=== PATIENT | male | born 1935 | race Caucasian/White ===

== ENCOUNTER 2018-02-10 00:28 | Emergency (ER) | payer MEDICARE, OTHER ==
[2018-02-10] MEDS ORDERED: Ondansetron ODT 4 MG TAB ONE (00:58)
[2018-02-10] MEDS ORDERED: Mag-Al Plus 1200 MG/1200 MG/120 MG/30 ML UDCUP ONE (00:58)
[2018-02-10] MEDS ORDERED: Dicyclomine 10 MG CAP ONE (00:58)
[2018-02-10] MEDS ORDERED: Acetaminophen/Codeine 30-300mg Tablet ONE (01:44)
[2018-02-10] MEDS ORDERED: Pantoprazole 40 MG VIAL ONE (03:14)
[2018-02-10] MEDS ORDERED: Sodium Chloride 0.9% 1,000 ML ONE (03:14)
[2018-02-10] MEDS ORDERED: Morphine 4 MG/ML VIAL ONE ×2 (03:14→08:08)
[2018-02-10 03:20] LABS: #Basophils 0.1 thou/uL (0.0-0.2); #Lymphocytes 1.6 thou/uL (1.20-3.40); #Neutrophils 15.1 thou/uL (1.40-6.50); %Basophils 0.5 % (0.0-1.0); %Eosinophils 0.1 % (0.0-10.0); %Lymphocytes 8.9 % (21.0-51.0); %Monocytes 5.5 % (0.0-10.0); Hemoglobin 15.2 g/dL (14.0-18.0); Mean Corpuscular HGB CONC 34.4 g/dL (32.0-36.0); Mean Corpuscular Hemoglobin 29.6 pg (27.0-31.0); Mean Platelet Volume 7.8 fL (7.4-10.4); Platelet Count 370 thou/uL (130-400); RBC Distribution Width 10.8 % (11.5-14.5); Red Blood Cell (RBC) Count 5.14 mill/uL (4.70-6.10); White Blood Cell (WBC) Count 17.8 thou/uL (4.8-10.8)
[2018-02-10 03:35] LABS: ALT (SGPT) 17 U/L (8-55); AST (SGOT) 18 U/L (5-34); Albumin 4.6 g/dL (3.4-4.8); Alkaline Phosphatase 109 U/L (40-150); Anion Gap 19 mmol/L (10-20); BUN (Urea Nitrogen) 20 mg/dL (8.4-25.7); Bilirubin, Total 0.6 mg/dL (0.2-1.2); Calc. Creatinine Clearance 0 mL/min (70-130); Calcium 9.7 mg/dL (7.8-10.44); Carbon Dioxide 23 mmol/L (23-31); Chloride 94 mmol/L (98-107); Estimated GFR-MDRD 45; Globulin 4.3 g/dL (2.4-3.5); Glucose 253 mg/dL (83-110); Lipase 13 U/L (8-78); Potassium 3.8 mmol/L (3.5-5.1); Protein, Total 8.9 g/dL (5.8-8.1); Sodium 132 mmol/L (136-145)
[2018-02-10] MEDS ORDERED: Piperacillin/Tazobactam 4.5 GM VIAL ONE ×3 (05:42→11:24)
[2018-02-10] MEDS ORDERED: Sodium Chloride 0.9% 100 ML ONE ×2 (05:43→11:24)
[2018-02-10] MEDS ORDERED: Iopamidol 370 76% 100 ML VIAL ONE (06:40)
--- NOTE | 2018-02-10 09:25 | ULT ---
PRELIMINARY REPORT/[facility]/EMERGENTY AFTER-HOURS PROCEDURE US Abdomen Limited, Right Upper Quadrant EXAM DATE/TIME: 02/10/2018 5:50 AM CLINICAL HISTORY: 82 years old, male; Pain; Abdominal pain; Periumbilical; Patient HX: Periumbilical pain for last 2 da ys; Additional info: CT done earlier on this patient TECHNIQUE: Real-time ultrasound of the abdomen with image documentation. Examination was focused on the right up per quadrant. COMPARISON: CT Abdomen Pelvis W Con 02/10/2018 4:11 AM FINDINGS: Liver: Normal. No masses. Gallbladder: Gallbladder wall thickness measures 4 mm. A positive sonographic Aguilera sign is reported . Evaluation is somewhat limited however a gallstone may be present (series 1, image 25) Common bile duct: CBD measures 5 mm in diameter. Pancreas: The pancreas is poorly-visualized due to overlying bowel gas. Right kidney: Right kidney measures 10.5 x 6.2 x 4.6 IMPRESSION: Acute cholecystitis is suspected although evaluation is limited as above. Thank you for allowing us to participate in the care of your patient. Dictated and Authenticated by: Aiden Zelaya MD 02/10/2018 7:04 AM Central Time ([place] & [place]) FINAL REPORT RIGHT UPPER QUADRANT ULTRASOUND: Date: 02/10/18 FINDINGS/IMPRESSION: I agree with the preliminary report given by Piyush. POS: [facility]
--- NOTE | 2018-02-10 09:27 | CT ---
PRELIMINARY REPORT/[facility]/EMERGENTY AFTER-HOURS PROCEDURE CT Abdomen and Pelvis With Contrast EXAM DATE/TIME: 02/10/2018 4:11 AM CLINICAL HISTORY: 82 years old, male; Pain; Abdominal pain; Periumbilical; Patient HX: Periumbilical pain x 2 days TECHNIQUE: Axial computed tomography images of the abdomen and pelvis with intravenous contrast. All CT scans at this facility use at least one of these dose optimization techniques: automated exposure control; mA and/or kV adjustment per patient size (includes targeted exams where dose is matched to clinical ind ication); or iterative reconstruction. Coronal reformatted images were created and reviewed. CONTRAST: 100 ml of ISOVUE 370 administered intravenously. COMPARISON: No relevant prior studies available. FINDINGS: Lower thorax: There is subpleural atelectasis of the dependent portions of the lungs. A small hiatal hernia is present. ABDOMEN: Liver: There are no focal liver lesions identified. Gallbladder and bile ducts: There is questionable gallbladder wall haziness. There is no evidence of biliary ductal dilation. Pancreas: The pancreas appears normal. No ductal dilatation. Spleen: The spleen is normal. Adrenals: The adrenal glands are normal. Kidneys and ureters: The right kidney is normal. There is an indeterminate hypoattenuating lesion wit hin the left kidney which probably represents a benign cyst however is incompletely evaluated on curr ent exam. Nonemergent outpatient renal ultrasound performed for further characterization if clinically warranted. There is no evidence of hydronephrosis. Stomach and bowel: The stomach is normal. The duodenum is unremarkable. Mild diverticulosis is presen t in the sigmoid and descending colon. Appendix: No appendix is specifically identified. No associated signs to suggest acute appendicitis. PELVIS: Bladder: The bladder is normal. Reproductive: The prostate gland demonstrates moderate nonspecific enlargement. The seminal vesicles are normal. ABDOMEN and PELVIS: Intraperitoneal space: Normal. No free air. No significant fluid collection. Bones/joints: The lumbar spine demonstrates moderate degenerative changes at multiple levels. Soft tissues: Unremarkable. Vasculature: Normal. No abdominal aortic aneurysm. Lymph nodes: Normal. No enlarged lymph nodes. IMPRESSION: There is questionable gallbladder wall haziness. If acute cholecystitis is suspected, right upper kennedi drant ultrasound may be helpful for further evaluation. Thank you for allowing us to participate in the care of your patient. Dictated and Authenticated by: Aiden Zelaya MD 02/10/2018 5:26 AM Central Time ([place] & [place]) FINAL REPORT CT ABDOMEN AND PELVIS WITH IV CONTRAST: Date: 02/10/18 FINDINGS/IMPRESSION: I agree with the preliminary report given by Piyush. POS: [facility]
[2018-02-10 11:06] LABS: CKMB 3.2 ng/mL (0-6.6)
== END 2018-02-10 11:53 ==
LOC: MADERS 00:28
DX: R10.13 Epigastric pain (principal); I25.2 Old myocardial infarction; E11.9 Type 2 diabetes mellitus without complications
CPT/HCPCS: 36415; 74177; 76705; 80053; 82553; 83605; 83690; 84484; 85025; 93005; 96361; 96365; 96366; 96375; 96376; C9113; J2270; J2543; J7050; Q0162

== ENCOUNTER 2018-04-29 11:01 | Emergency (ER) | payer OTHER ==
[2018-04-29] MEDS ORDERED: cefTRIAXone\\ROCEPHIN 1 GM VIAL ONE (12:02)
[2018-04-29] MEDS ORDERED: Lidocaine 1% 20 ML MDV ONE (12:02)
== END 2018-04-29 12:20 | disposition home or self-care (01) ==
LOC: MADERS 11:01
DX: L03.113 Cellulitis of right upper limb (principal); E11.9 Type 2 diabetes mellitus without complications; Z79.899 Other long term (current) drug therapy
CPT/HCPCS: 96372; J0696; J2001

== ENCOUNTER 2018-05-04 20:28 | Emergency (ER) | payer OTHER ==
[~2018-05-04 20:28] MED LIST: Iopamidol 370 76% 100 ML VIAL ONE
[2018-05-04 20:56] LABS: #Basophils 0.1 thou/uL (0.0-0.2); #Eosinphils 0.1 thou/uL (0.0-0.7); #Lymphocytes 2.2 thou/uL (1.20-3.40); #Monocytes 0.9 thou/uL (0.11-0.59); #Neutrophils 8.3 thou/uL (1.40-6.50); %Basophils 1.1 % (0.0-1.0); %Eosinophils 0.6 % (0.0-10.0); %Lymphocytes 18.9 % (21.0-51.0); %Monocytes 7.6 % (0.0-10.0); %Neutrophils 71.7 % (42.0-75.0); Hemoglobin 11.9 g/dL (14.0-18.0); Mean Corpuscular Hemoglobin 26.6 pg (27.0-31.0); Mean Corpuscular Volume 80.6 fL (78.0-98.0); Mean Platelet Volume 7.1 fL (7.4-10.4); Platelet Count 498 thou/uL (130-400); RBC Distribution Width 13.1 % (11.5-14.5); Red Blood Cell (RBC) Count 4.49 mill/uL (4.70-6.10); White Blood Cell (WBC) Count 11.6 thou/uL (4.8-10.8)
[2018-05-04] MEDS ORDERED: Sodium Chloride 0.9% 1,000 ML ONE ×2 (20:59→22:01)
[2018-05-04 21:11] LABS: Bilirubin Small (Negative); Blood, Urine Negative (Negative); Clarity Clear (Clear); Glucose, Urine (Dipstick) Negative (Negative); Leukocyte Negative (Negative); Nitrite Negative (Negative); Protein, Urine (Dipstick) Negative (Neg-Trace); Specific Gravity, Urine 1.025 (1.005-1.030)
[2018-05-04 21:17] LABS: ALT (SGPT) 17 U/L (8-55); AST (SGOT) 20 U/L (5-34); Albumin 3.6 g/dL (3.4-4.8); Alkaline Phosphatase 155 U/L (40-150); Anion Gap 22 mmol/L (10-20); BUN (Urea Nitrogen) 16 mg/dL (8.4-25.7); Bilirubin, Total 0.4 mg/dL (0.2-1.2); CK (CPK) 52 U/L (30-200); Calc. Creatinine Clearance 0 mL/min (70-130); Calcium 8.8 mg/dL (7.8-10.44); Carbon Dioxide 15 mmol/L (23-31); Chloride 100 mmol/L (98-107); Estimated GFR-MDRD 55; Glucose 142 mg/dL (83-110); Potassium 4.9 mmol/L (3.5-5.1); Protein, Total 7.6 g/dL (5.8-8.1); Sodium 132 mmol/L (136-145)
[2018-05-04] MEDS ORDERED: Aspirin Chewable 81 MG TAB ONE (21:27)
[2018-05-04 21:33] LABS: CKMB 1.3 ng/mL (0-6.6)
[2018-05-04 21:52] LABS: Acetaminophen Less than 6.0 mcg/mL (10.0-30.0); Alcohol Less than 10 mg/dL (Less than 10); Salicylate Less than 8.0 mg/dL (15.0-30.0)
[2018-05-04] MEDS ORDERED: Piperacillin/Tazobactam 4.5 GM VIAL ONE (22:09)
[2018-05-04] MEDS ORDERED: Sodium Chloride 0.9% 250 ML 250 ML ONE (22:10)
[2018-05-04] MEDS ORDERED: Sodium Chloride 0.9% 100 ML ONE (22:10)
--- NOTE | 2018-05-04 22:42 | CT ---
BRAIN CT WITHOUT IV CONTRAST: History: Altered mental status. Comparison: 02-10-16 FINDINGS: Marked atrophy and chronic white matter ischemic changes. Old punctate lacunar infarcts in the estrella. Area of encephalomalacia in the right frontal lobe. No focal mass or midline shift. No intra or extra axial hemorrhage. Sinuses and mastoids are clear. IMPRESSION: Atrophy and chronic white matter ischemic changes with old infarct changes as above. Some of these ch anges are new from 2016. No mass or bleed or other significant acute process. POS: [facility]
--- NOTE | 2018-05-04 22:44 | RAD ---
EXAM: CHEST ONE VIEW: History: Nausea, vomiting. Comparison: 02-13-16 FINDINGS: Borderline cardiomegaly. No confluent pneumonia, overt edema, or pleural effusion. Arthrosis changes of both shoulders. IMPRESSION: Borderline cardiomegaly. No significant acute intrathoracic disease. Atherosclerosis of the aorta. St able from prior study. POS: [facility]
--- NOTE | 2018-05-04 23:29 | CT ---
EXAM: ABDOMEN AND PELVIC CT SCAN WITH IV CONTRAST: History: Abdominal pain. Comparison: 02-10-18 FINDINGS: Small left pleural effusion or pleural thickening. Mild increased markings in the lung bases. Fatty c hanges in the liver with status post cholecystectomy. Pancreas appears unremarkable. The spleen is so mewhat small and scarred with irregular low attenuation focus within it, somewhat triangular shaped a pproximating 3 cm on a side, probably a splenic infarct. Slightly scarred appearing kidneys. Left jae al cyst. No renal calculus or acute obstruction. Adrenal glands are unremarkable. No CT evidence f or acute appendicitis. There is scattered colonic diverticulosis without acute diverticulitis. Border line urinary bladder wall thickening, nonspecific but does appear to be slightly more prominent than on the prior 02-10-18 study. There are several loops of bowel which are within normal size but have f luid within them, nonspecific. This could represent some very mild nonspecific ileus or enteritis. No abscess or adenopathy or significant abnormal fluid collection. Bilateral fat containing inguinal he rnias. IMPRESSION: Somewhat small scarred spleen with a triangular low attenuation, evidence for splenic infarct. Status post cholecystectomy. Some fluid filled up to borderline sized small bowel loops, nonspecific, possi neida mild ileus or minimal enteritis. No renal calculus or obstruction. No CT evidence for acute ap pendicitis. Borderline urinary bladder wall thickening, nonspecific. POS: [facility]
[2018-05-05 01:55] LABS: CKMB 1.2 ng/mL (0-6.6)
[2018-05-05] MEDS ORDERED: Piperacillin/Tazobactam 4.5 GM VIAL ONE (02:21)
[2018-05-05] MEDS ORDERED: Sodium Chloride 0.9% 100 ML ONE (02:22)
== END 2018-05-05 02:30 | disposition short-term general hospital (02) ==
LOC: MADERS 20:28
DX: A41.9 Sepsis, unspecified organism (principal); D73.5 Infarction of spleen; R79.89 Other specified abnormal findings of blood chemistry; I25.2 Old myocardial infarction; E11.9 Type 2 diabetes mellitus without complications; Z79.899 Other long term (current) drug therapy
CPT/HCPCS: 36415; 51701; 70450; 71045; 74177; 80053; 80307; 81003; 82550; 82553; 83605; 83690; 84484; 85025; 87040; 87086; 93005; 96361; 96365; 96366; 96367; J2543; J3370; J7050; Q9967

== ENCOUNTER 2018-08-17 06:34 | Emergency (ER) | payer MEDICARE, OTHER ==
[2018-08-17 07:41] LABS: #Basophils 0.2 thou/uL (0.0-0.2); #Eosinphils 0.4 thou/uL (0.0-0.7); #Lymphocytes 1.1 thou/uL (1.20-3.40); #Monocytes 0.6 thou/uL (0.11-0.59); #Neutrophils 5.6 thou/uL (1.40-6.50); %Basophils 2.1 % (0.0-1.0); %Eosinophils 4.6 % (0.0-10.0); %Lymphocytes 14.1 % (21.0-51.0); %Monocytes 7.8 % (0.0-10.0); %Neutrophils 71.5 % (42.0-75.0); Hemoglobin 14.4 g/dL (14.0-18.0); Mean Corpuscular HGB CONC 31.3 g/dL (32.0-36.0); Mean Corpuscular Hemoglobin 27.6 pg (27.0-31.0); Mean Platelet Volume 7.3 fL (7.4-10.4); Platelet Count 287 thou/uL (130-400); Red Blood Cell (RBC) Count 5.21 mill/uL (4.70-6.10); White Blood Cell (WBC) Count 7.8 thou/uL (4.8-10.8)
[2018-08-17 07:55] LABS: ALT (SGPT) 20 U/L (8-55); AST (SGOT) 15 U/L (5-34); Albumin 3.5 g/dL (3.4-4.8); Alkaline Phosphatase 91 U/L (40-150); Anion Gap 15 mmol/L (10-20); BUN (Urea Nitrogen) 19 mg/dL (8.4-25.7); Bilirubin, Total 0.4 mg/dL (0.2-1.2); Calc. Creatinine Clearance 0 mL/min (70-130); Calcium 8.5 mg/dL (7.8-10.44); Carbon Dioxide 22 mmol/L (23-31); Chloride 106 mmol/L (98-107); Estimated GFR-MDRD 58; Globulin 3.2 g/dL (2.4-3.5); Glucose 243 mg/dL (83-110); Protein, Total 6.7 g/dL (5.8-8.1); Sodium 139 mmol/L (136-145)
[2018-08-17] MEDS ORDERED: Nitroglycerin 2% Ointment 1 INCH/1 GM Packet ONE (08:14)
[2018-08-17] MEDS ORDERED: Aspirin Chewable 81 MG TAB ONE (08:14)
[2018-08-17] MEDS ORDERED: Furosemide 40 MG/4 ML VIAL ONE (08:14)
[2018-08-17] MEDS ORDERED: Nitroglycerin 0.4 MG TAB 1 EACH ONE (08:14)
[2018-08-17 08:17] LABS: CKMB 1.9 ng/mL (0-6.6)
--- NOTE | 2018-08-17 09:02 | RAD ---
CHEST 1 VIEW: Date: 08/17/18 COMPARISON: 05/19/18. HISTORY: Dyspnea. FINDINGS: Heart size is enlarged. Pulmonary vessels are engorged with increased parahilar lung markings, sugges ting element of edema. There is also superimposition of chronic-appearing changes. IMPRESSION: Cardiomegaly with increased interstitial lung markings, at least some of which are chronic in nature; however, there is pulmonary vascular engorgement and increased parahilar lung markings, more promine nt than on the prior exam suggesting a coexistent element of edema. POS: [facility]
== END 2018-08-17 09:16 | disposition short-term general hospital (02) ==
LOC: MADERS 06:34
DX: I11.0 Hypertensive heart disease with heart failure (principal); I50.9 Heart failure, unspecified; R79.89 Other specified abnormal findings of blood chemistry; R09.02 Hypoxemia; I25.2 Old myocardial infarction
CPT/HCPCS: 71045; 80053; 82553; 83880; 84484; 85025; 93005; 96374; J1940

== ENCOUNTER 2019-03-17 10:00 | Emergency (ER) | payer MEDICARE, OTHER ==
[2019-03-17 10:26] LABS: #Basophils 0.1 thou/uL (0.0-0.2); #Eosinphils 0.1 thou/uL (0.0-0.7); #Lymphocytes 1.7 thou/uL (1.20-3.40); #Monocytes 1.1 thou/uL (0.11-0.59); #Neutrophils 7.5 thou/uL (1.40-6.50); %Basophils 1.1 % (0.0-1.0); %Eosinophils 1.3 % (0.0-10.0); %Lymphocytes 16.2 % (21.0-51.0); %Monocytes 10.3 % (0.0-10.0); %Neutrophils 71.1 % (42.0-75.0); Hemoglobin 13.1 g/dL (14.0-18.0); Mean Corpuscular HGB CONC 31.2 g/dL (32.0-36.0); Mean Corpuscular Volume 86.6 fL (78.0-98.0); Mean Platelet Volume 7.7 fL (7.4-10.4); Platelet Count 415 thou/uL (130-400); RBC Distribution Width 12.6 % (11.5-14.5); Red Blood Cell (RBC) Count 4.86 mill/uL (4.70-6.10); White Blood Cell (WBC) Count 10.6 thou/uL (4.8-10.8)
[2019-03-17 10:40] LABS: ALT (SGPT) 16 U/L (8-55); AST (SGOT) 16 U/L (5-34); Albumin 3.7 g/dL (3.4-4.8); Alkaline Phosphatase 148 U/L (40-110); Anion Gap 17 mmol/L (10-20); BUN (Urea Nitrogen) 19 mg/dL (8.4-25.7); Bilirubin, Total 1.2 mg/dL (0.2-1.2); CK (CPK) 63 U/L (30-200); Calc. Creatinine Clearance 0 mL/min (70-130); Calcium 9.6 mg/dL (7.8-10.44); Carbon Dioxide 25 mmol/L (23-31); Chloride 100 mmol/L (98-107); Estimated GFR-MDRD 57; Globulin 4.2 g/dL (2.4-3.5); Glucose 99 mg/dL (83-110); Magnesium 1.9 mg/dL (1.6-2.6); Potassium 3.7 mmol/L (3.5-5.1); Protein, Total 7.9 g/dL (5.8-8.1); Sodium 138 mmol/L (136-145)
--- NOTE | 2019-03-17 10:49 | CT ---
CT HEAD WITHOUT CONTRAST: Date: 03/17/2019 INDICATION: Mental status change. History of prior CVA. Comparison made to head CT dated 05/14/18. FINDINGS: Mild cortical volume loss again noted. Ventricles have normal size and position. Evidence of old righ t frontal lobe infarct with encephalomalacia again noted, stable from prior exam. Moderately severe c hronic ischemic white matter changes are again noted. No evidence of acute cortical infarct. No evide nce of mass or hemorrhage. Paranasal sinuses and mastoids are clear. IMPRESSION: Chronic findings appear stable from prior study. No acute intracranial process identified. Acute lacu merari infarcts within the deep white matter may not be apparent on CT and could be assessed with MRI if clinically indicated. POS: [facility]
--- NOTE | 2019-03-17 13:16 | RAD ---
EXAM: CHEST ONE VIEW HISTORY: Weakness COMPARISON: 01/20/2019 FINDINGS: Godfrey silhouette is magnified by projection and stable in size. Pulmonary vasculature is less prominen t than on the prior exam. Interstitial densities are also improved. There are linear parenchymal densities seen at each lung base which is likely related to atelectasis. No consolidation or pleural fluid is identified. 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 Vascular calcifications are seen in the thoracic aorta. IMPRESSION: 1. Findings likely attributable to bibasilar atelectasis. No definite acute cardiopulmonary process i s otherwise identified. 2. Improvement in pulmonary vascular congestion and interstitial densities noted on the prior exam.
[2019-03-17 13:57] LABS: Bilirubin Small (Negative); Blood, Urine Negative (Negative); Clarity Clear (Clear); Glucose, Urine (Dipstick) Negative (Negative); Leukocyte Negative (Negative); Nitrite Negative (Negative); Protein, Urine (Dipstick) Negative (Neg-Trace)
== END 2019-03-17 16:06 | disposition short-term general hospital (02) ==
LOC: MADERS 10:00
DX: R26.9 Unspecified abnormalities of gait and mobility (principal); R07.9 Chest pain, unspecified; E11.9 Type 2 diabetes mellitus without complications; E78.5 Hyperlipidemia, unspecified; I10 Essential (primary) hypertension; I25.2 Old myocardial infarction; D64.9 Anemia, unspecified; Z86.73 Personal history of transient ischemic attack (TIA), and cerebral infarction without residual deficits
CPT/HCPCS: 36415; 70450; 71045; 80053; 81003; 82550; 83735; 83880; 84443; 84484; 85025; 93005

== ENCOUNTER 2019-05-25 16:09 | Emergency (ER) | payer OTHER, MEDICARE ==
[2019-05-25 16:50] LABS: #Basophils 0.2 thou/uL (0.0-0.2); #Eosinphils 0.3 thou/uL (0.0-0.7); #Lymphocytes 2.4 thou/uL (1.20-3.40); #Monocytes 0.7 thou/uL (0.11-0.59); #Neutrophils 4.6 thou/uL (1.40-6.50); %Basophils 2.1 % (0.0-1.0); %Eosinophils 3.4 % (0.0-10.0); %Lymphocytes 29.4 % (21.0-51.0); %Monocytes 8.7 % (0.0-10.0); %Neutrophils 56.5 % (42.0-75.0); Hemoglobin 13.2 g/dL (14.0-18.0); Mean Corpuscular HGB CONC 32.6 g/dL (32.0-36.0); Mean Corpuscular Hemoglobin 28.9 pg (27.0-31.0); Mean Corpuscular Volume 88.7 fL (78.0-98.0); Mean Platelet Volume 8.4 fL (7.4-10.4); Platelet Count 320 thou/uL (130-400); RBC Distribution Width 13.3 % (11.5-14.5); Red Blood Cell (RBC) Count 4.55 mill/uL (4.70-6.10); White Blood Cell (WBC) Count 8.1 thou/uL (4.8-10.8)
--- NOTE | 2019-05-25 17:03 | CT ---
Exam: CT cervical spine without contrast HISTORY: Trauma. Pain. COMPARISON: None FINDINGS: No craniocervical dissociation. Appropriate alignment of the lateral masses of C1 and C2. Intact odon toid process Appropriate alignment of the facets. Straightening of normal cervical lordosis may be due to patient position, muscle spasm or cervical collar. Current study does not assess for ligamentous injury. Grade 1 anterolisthesis of C3 upon C4 is presumed to be due to degenerative changes of the facets. Soft tissue neck structures: No mass, lymphadenopathy or hematoma. No prevertebral soft tissue swelli ng. Atherosclerosis involving the visualized carotid arteries, incompletely evaluated Upper mediastinum and lung apices: Unremarkable Central spinal canal: There are varying degrees of central canal stenosis and neural foraminal narrow ing due to degenerative change. Technique limits evaluation. Vertebral bodies: Cervical spine vertebral body height is maintained. No fracture. IMPRESSION: 1. No cervical spine fracture. 2. Degenerative changes of the cervical spine as described above. 3. Atherosclerosis of the carotid arteries, incompletely evaluated. 4. Straightening of cervical lordosis as detailed above. If there is concern for ligamentous injury, consider MRI
[2019-05-25 17:04] LABS: ALT (SGPT) 15 U/L (8-55); AST (SGOT) 13 U/L (5-34); Albumin 4.1 g/dL (3.4-4.8); Alkaline Phosphatase 98 U/L (40-110); Anion Gap 17 mmol/L (10-20); BUN (Urea Nitrogen) 16 mg/dL (8.4-25.7); Bilirubin, Total 0.4 mg/dL (0.2-1.2); Calc. Creatinine Clearance 0 mL/min (70-130); Calcium 9.3 mg/dL (7.8-10.44); Carbon Dioxide 22 mmol/L (23-31); Chloride 101 mmol/L (98-107); Estimated GFR-MDRD 45; Globulin 3.2 g/dL (2.4-3.5); Glucose 513 mg/dL (83-110); Lipase 25 U/L (8-78); Potassium 4.5 mmol/L (3.5-5.1); Protein, Total 7.3 g/dL (5.8-8.1); Sodium 135 mmol/L (136-145)
[2019-05-25 17:19] LABS: Bilirubin Negative (Negative); Blood, Urine Negative (Negative); Clarity Clear (Clear); Glucose, Urine (Dipstick) >=1000 mg/dL (Negative); Leukocyte Negative (Negative); Nitrite Negative (Negative); Protein, Urine (Dipstick) Negative (Neg-Trace); Urobilinogen 0.2 mg/dL (Less than 2)
[2019-05-25] MEDS ORDERED: Insulin Regular 300 UNITS/3 ML VIAL ONE (17:59)
[2019-05-25] MEDS ORDERED: Sodium Chloride 0.9% 500 ML ONE (17:59)
[2019-05-25 18:00] LABS: CKMB 1.6 ng/mL (0-6.6)
== END 2019-05-25 20:45 ==
LOC: MADERS 16:09
DX: R53.1 Weakness (principal); I48.91 Unspecified atrial fibrillation; E11.65 Type 2 diabetes mellitus with hyperglycemia; I10 Essential (primary) hypertension; R79.9 Abnormal finding of blood chemistry, unspecified; E78.5 Hyperlipidemia, unspecified; D64.9 Anemia, unspecified; I25.2 Old myocardial infarction; Z86.73 Personal history of transient ischemic attack (TIA), and cerebral infarction without residual deficits
CPT/HCPCS: 36416; 72125; 80053; 81003; 82553; 83605; 83690; 83880; 84484; 85025; 93005; 94760; 96361; 96374; J1815; J7030; L0120

== ENCOUNTER 2019-08-01 11:36 | Emergency (ER) | payer OTHER ==
--- NOTE | 2019-08-01 12:27 | RAD ---
Exam: Chest one view HISTORY:Altered mental status Comparison: 03/09/2019 FINDINGS: Cardiac silhouette:Upper normal cardiac silhouette Aorta: Atherosclerosis Pulmonary vessels: Normal Costophrenic angles: Clear LUNGS: Diffuse interstitial opacities, worrisome for edema or infiltrate. Lungs otherwise are diminis hed due to a poor inspiratory effort. Pneumothorax: None Osseous abnormalities: Degenerative changes in both shoulders IMPRESSION: 1. Diminished lung volumes likely due to a poor inspiratory effort 2. Interstitial prominence may be due to edema or infiltrate. Continued surveillance is recommended.
[2019-08-01 12:35] LABS: #Basophils 0.1 thou/uL (0.0-0.2); #Eosinphils 0.1 thou/uL (0.0-0.7); #Lymphocytes 2.5 thou/uL (1.20-3.40); #Monocytes 0.8 thou/uL (0.11-0.59); #Neutrophils 6.3 thou/uL (1.40-6.50); %Basophils 1.1 % (0.0-1.0); %Eosinophils 0.6 % (0.0-10.0); %Lymphocytes 25.5 % (21.0-51.0); %Monocytes 8.5 % (0.0-10.0); %Neutrophils 64.3 % (42.0-75.0); Hemoglobin 14.3 g/dL (14.0-18.0); Mean Corpuscular HGB CONC 32.9 g/dL (32.0-36.0); Mean Corpuscular Hemoglobin 28.7 pg (27.0-31.0); Mean Corpuscular Volume 87.1 fL (78.0-98.0); Mean Platelet Volume 8.8 fL (7.4-10.4); Platelet Count 327 thou/uL (130-400); RBC Distribution Width 11.8 % (11.5-14.5); Red Blood Cell (RBC) Count 4.99 mill/uL (4.70-6.10); White Blood Cell (WBC) Count 9.8 thou/uL (4.8-10.8)
--- NOTE | 2019-08-01 12:45 | CT ---
Exam: Head CT without contrast HISTORY: Altered mental status COMPARISON: 03/17/2019 FINDINGS: Hemorrhage: No intraparenchymal hemorrhage or extra-axial hematoma. Brain parenchyma: Indeterminate infarct involving the right MCA distribution. Stable encephalomalacia and gliosis involving the right frontal lobe. Stable encephalomalacia and gliosis involving the left occipital lobe. Additional chronic small vessel ischemic changes white matter are identified. Ventricular system: Ventricles and sulci are patent and symmetric. Calvarium: Intact. Sinuses and mastoid air cells: Adequate aeration. IMPRESSION: 1. 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 Remote infarct involving the left occipital lobe and right frontal lobe. 3. Stable chronic small vessel ischemic changes of the white matter.
[2019-08-01 12:49] LABS: ALT (SGPT) 16 U/L (8-55); AST (SGOT) 16 U/L (5-34); Albumin 4.1 g/dL (3.4-4.8); Alkaline Phosphatase 104 U/L (40-110); Anion Gap 17 mmol/L (10-20); BUN (Urea Nitrogen) 15 mg/dL (8.4-25.7); Bilirubin, Total 0.7 mg/dL (0.2-1.2); Calc. Creatinine Clearance 0 mL/min (70-130); Calcium 9.3 mg/dL (7.8-10.44); Carbon Dioxide 21 mmol/L (23-31); Chloride 103 mmol/L (98-107); Estimated GFR-MDRD 46; Globulin 3.8 g/dL (2.4-3.5); Glucose 207 mg/dL (83-110); Potassium 4.2 mmol/L (3.5-5.1); Protein, Total 7.9 g/dL (5.8-8.1); Sodium 137 mmol/L (136-145)
[2019-08-01 12:50] LABS: Acetaminophen Less than 6.0 mcg/mL (10.0-30.0); Alcohol Less than 10 mg/dL (Less than 10); Salicylate Less than 8.0 mg/dL (15.0-30.0)
[2019-08-01] MEDS ORDERED: Sodium Chloride 0.9% 500 ML ONE (13:20)
[2019-08-01] MEDS ORDERED: Aspirin 325 MG TAB ONE (13:20)
[2019-08-01 14:15] LABS: Bilirubin Negative (Negative); Blood, Urine Negative (Negative); Clarity Hazy (Clear); Glucose, Urine (Dipstick) Negative (Negative); Leukocyte Negative (Negative); Nitrite Negative (Negative); Protein, Urine (Dipstick) Negative (Neg-Trace); Urobilinogen 0.2 mg/dL (Less than 2)
== END 2019-08-01 15:30 | disposition home or self-care (01) ==
LOC: MADERS 11:36
DX: I63.9 Cerebral infarction, unspecified (principal); E11.9 Type 2 diabetes mellitus without complications; I25.2 Old myocardial infarction; E78.5 Hyperlipidemia, unspecified; I10 Essential (primary) hypertension; D64.9 Anemia, unspecified; Z79.899 Other long term (current) drug therapy; Z79.82 Long term (current) use of aspirin
CPT/HCPCS: 36416; 70450; 71045; 80053; 80307; 81003; 83605; 84443; 84484; 85025; 93005; 96360; J7030